=== PATIENT | female | born 1985 | race Two or more races ===

== ENCOUNTER 2022-10-02 14:08 | Emergency (ER) | payer MEDICAID, SELFPAY ==
--- NOTE | ~2022-10-02 | XR_ITS ---
EXAMINATION: XR SHOULDER, LEFT CLINICAL INFORMATION: Left shoulder pain. COMPARISON: None available. TECHNIQUE: Three views of the left shoulder. FINDINGS: The bones and soft tissues are normal. No fracture. Glenohumeral and acromioclavicular alignment is anatomic with normal joint space. No abnormal soft tissue calcifications. XR/XR shoulder LT min 2V IMPRESSION: Unremarkable left shoulder.
--- NOTE | ~2022-10-02 | XR_ITS ---
X-ray left knee CLINICAL HISTORY: Additional sunrise view. COMPARISON: X-ray left knee earlier today. TECHNIQUE: [place] view of the left knee. XR/XR knee LT 1V FINDINGS/IMPRESSION: No evidence of patella subluxation or displaced fracture in this limited single sunrise view of the left knee.
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
[2022-10-02 14:16] VITALS: BP 118/62; PULSE 102; O2SAT 97
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
[2022-10-02 14:45] VITALS: BP 102/57; PULSE 80; RESP 18; TEMP 36.8; O2SAT 98; BMI 23.9
[2022-10-02] MEDS: Cyclobenzaprine HCl 5 MG TABLET PO (18:31)
[2022-10-02 19:30] VITALS: BP 116/62; PULSE 80; RESP 18; TEMP 36.7; O2SAT 98
== END 2022-10-02 19:38 | disposition home or self-care (01) ==
PROVIDERS: Emergency Provider Emergency Medicine; PCP Internal Medicine
DX: S13.4XXA Sprain of ligaments of cervical spine, initial encounter (principal); S89.92XA Unspecified injury of left lower leg, initial encounter; M25.512 Pain in left shoulder; M25.562 Pain in left knee; M54.2 Cervicalgia; V43.52XA Car driver injured in collision with other type car in traffic accident, initial encounter; Y93.9 Activity, unspecified; Y92.410 Unspecified street and highway as the place of occurrence of the external cause; Y99.9 Unspecified external cause status; Z79.899 Other long term (current) drug therapy
CPT/HCPCS: 73030; 73560; 73562; 99283; 99284